=== PATIENT | male | born 1955 | race Caucasian/White ===

== ENCOUNTER 2018-06-20 08:45 | Observation (INO) | payer BC, OTHER ==
[2018-06-20] MEDS: Sodium Chloride 0.9% 500 ML IV ONE (09:00)
--- NOTE | 2018-06-20 09:20 | EDM.PDOC ---
ED HPI GENERAL MEDICAL PROBLEM - General Chief Complaint: Cardiovascular Problem Stated Complaint: elevated BP Time Seen by Provider: 06/20/18 08:50 Source of Information: Reports: Patient History Limitations: Reports: No Limitations - History of Present Illness INITIAL COMMENTS - FREE TEXT/NARRATIVE: Pt is a healthy 62 year male , who presents to emergency room with dizziness. Pt claims that he woke up today morning and felt lightheaded and dizzy. he started getting up and walking and he continued to feels dizzy, and felt sweaty , but no chest pain, shortness of breath or palpitations with it. No fever or chills.Pt claims he did feel anxious and concerned.He claims he does check his blood pressure several times a day and has been running around 130s/80-90smmhg. He came into emergency room, was still dizzy and anxious. Presently not dizzy. His initial Blood pressure was 149/89mmhg. Heart rate in 80s. Cardiac strip in NSR. No nausea or vomiting. Onset: Today Onset Date: 06/20/18 Onset Time: 06:00 Quality: Reports: Ache Severity: Mild Improves with: Reports: None Worsens with: Reports: None Associated Symptoms: Denies: Confusion, Chest Pain, Cough, Diaphoresis, Fever/ Chills, Headaches, Nausea/Vomiting, Rash, Seizure, Shortness of Breath, Syncope , Weakness - Related Data Allergies Allergy/AdvReac Type Severity Reaction Status Date / Time No Known Allergies Allergy Verified 06/20/18 08:57 Home Meds: Home Meds NK [No Known Home Meds] 06/20/18 [History] ED ROS GENERAL - Review of Systems Review Of Systems: See Below Constitutional: Denies: Fever, Chills HEENT: Denies: Rhinitis, Throat Pain, Throat Swelling Respiratory: Denies: Shortness of Breath, Pleuritic Chest Pain, Cough, Sputum Cardiovascular: Denies: Chest Pain, Lightheadedness GI/Abdominal: Denies: Abdominal Pain, Nausea, Vomiting Musculoskeletal: Denies: Joint Pain, Joint Swelling Skin: Denies: Bruising, Pruritis, Rash Neurological: Denies: Confusion, Dizziness, Headache, Numbness, Seizure, Syncope , Tingling, Weakness, Change in Speech, Gait Disturbance Psychiatric: Denies: Agitation, Anxiety, Confusion ED EXAM, GENERAL - Physical Exam Exam: See Below Exam Limited By: No Limitations General Appearance: Alert, WD/WN, No Apparent Distress, Anxious Eye Exam: Bilateral Eye: EOMI, PERRL Ears: Normal External Exam, Normal Canal, Hearing Grossly Normal, Normal TMs Ear Exam: Bilateral Ear: Auricle Normal, Canal Normal, TM normal Nose: Normal Inspection, Normal Mucosa, No Blood Throat/Mouth: Normal Inspection, Normal Lips, Normal Teeth, Normal Gums, Normal Oropharynx, Normal Voice, No Airway Compromise Head: Atraumatic, Normocephalic Neck: Normal Inspection, Supple, Non-Tender, Full Range of Motion Respiratory/Chest: No Respiratory Distress, Lungs Clear, Normal Breath Sounds, No Accessory Muscle Use, Chest Non-Tender Cardiovascular: Normal Peripheral Pulses, Regular Rate, Rhythm, No Edema, No Gallop, No JVD, No Murmur, No Rub GI/Abdominal: Normal Bowel Sounds, Soft, Non-Tender, No Organomegaly, No Distention, No Abnormal Bruit, No Mass Extremities: Normal Inspection, Normal Range of Motion, Non-Tender, Normal Capillary Refill, No Pedal Edema Neurological: Alert, Oriented, CN II-XII Intact, Normal Cognition, Normal Gait, Normal Reflexes, No Motor/Sensory Deficits Psychiatric: Normal Affect, Normal Mood, Anxious Course - Vital Signs Text/Narrative:: Pt's clinical exam is normal, other then light headedness. His BP is elevated at 148/98mmhg. Repeat CARLA was up to 169/98mmhg. His Labs are within normal limit. His Troponin is negative. EKG is in NSR. His CT head is normal. His BP is 169/89mmhg.He did receive clonidine 0.1mg orally. Also He has dizziness with change in position,but his BP down not drop. He might have viral Labyrinthitis.He did receive meclizine 25mg orally. He received NS 500mg bolus. Will admit patient for observation. Will repeat 8 hr troponin around 3 PM make sure it is not cardiac related, as he does have elevated blood pressure. Last Recorded V/S: Last Vital Signs Temp 97.8 F 06/20/18 09:00 Pulse 65 06/20/18 09:00 Resp 12 06/20/18 09:00 BP 157/86 H 06/20/18 09:00 Pulse Ox 96 06/20/18 09:00 - Orders/Labs/Meds Orders: Active Orders 24 hr Category Date Time Status EKG Documentation Completion [RC] ASDIRECTED Care 06/20/18 09:09 Active Head wo Cont [CT] Stat Exams 06/20/18 10:43 Ordered Labs: Laboratory Tests 06/20/18 06/20/18 Range/Units 09:14 09:14 WBC 6.8 (4.0-11.0) K/uL RBC 4.32 L (4.50-6.50) M/uL Hgb 12.2 L (13.0-18.0) g/dL Hct 36.3 L (40.0-54.0) % MCV 84 (76-96) fL MCH 28.2 (27.0-32.0) pg MCHC 33.6 (31.0-35.0) g/dL RDW 16.6 H (11.0-16.0) % Plt Count 180 (150-400) K/uL MPV 8.7 (6.0-10.0) fL Neut % (Auto) 51.6 (45.0-70.0) % Lymph % (Auto) 36.4 (20.0-40.0) % [place] % (Auto) 8.0 (3.0-10.0) % Eos % (Auto) 3.7 (1.0-5.0) % Baso % (Auto) 0.3 (0.0-0.5) % Neut # (Auto) 3.51 (2.00-7.50) K/uL Lymph # (Auto) 2.47 (1.50-4.00) K/uL [place] # (Auto) 0.54 (0.20-0.80) K/uL Eos # (Auto) 0.25 (0.04-0.40) K/uL Baso # (Auto) 0.02 (0.02-0.10) K/uL Sodium 141 (136-145) mmol/L Potassium 3.9 (3.5-5.1) mmol/L Chloride 106 (98-107) mmol/L Carbon Dioxide 25.5 (21.0-32.0) mmol/L Anion Gap 13.4 (5.0-15.0) mmol/L BUN 16 (8-26) mg/dL Creatinine 1.15 (0.70-1.30) mg/dL Est Cr Clr Drug Dosing TNP Estimated GFR (MDRD) > 60 (>60) MLS/MIN BUN/Creatinine Ratio 13.9 (6-25) Glucose 118 H (74-100) mg/dL Calcium 8.5 (8.5-10.1) mg/dL Total Bilirubin 0.5 (0.0-1.0) mg/dL AST 23 (15-37) U/L ALT 25 (12-78) U/L Alkaline Phosphatase 57 (46-116) U/L Troponin I 0.020 (0.000-0.060) ng/mL Total Protein 7.0 (6.4-8.2) g/dL Albumin 3.3 L (3.4-5.0) g/dL Globulin 3.7 (2.2-4.2) g/dL Albumin/Globulin Ratio 0.9 (0.8-2.0) Meds: Medications Discontinued Medications Generic Name Dose Route Start Last Admin Trade Name Freq PRN Reason Stop Dose Admin Clonidine HCl Confirm 06/20/18 10:10 06/20/18 10:51 Catapres Administered 06/20/18 10:11 Not Given Dose 0.1 mg .ROUTE .STK-MED ONE Clonidine HCl 0.1 mg 06/20/18 10:20 Catapres PO 06/20/18 10:21 ONETIME ONE Meclizine HCl Confirm 06/20/18 10:38 06/20/18 10:51 Antivert Administered 06/20/18 10:39 Not Given Dose 25 mg .ROUTE .STK-MED ONE Meclizine HCl 25 mg 06/20/18 10:44 06/20/18 10:56 Antivert PO 06/20/18 10:45 25 mg ONETIME ONE Administration Departure - Departure Time of Disposition: 11:00 Disposition: Refer to Observation Condition: Fair Clinical Impression: Dizziness Referrals: PCP,None [Primary Care Provider] - Forms: ED Department Discharge - Problem List & Annotations (1) Dizziness SNOMED Code(s): 185544169, [id number] Code(s): R42 - DIZZINESS AND GIDDINESS Status: Acute Current Visit: Yes - Problem List Review Problem List Initiated/Reviewed/Updated: Yes - My Orders Last 24 Hours: My Active Orders 06/20/18 09:09 EKG Documentation Completion [RC] ASDIRECTED 06/20/18 10:43 Head wo Cont [CT] Stat - Assessment/Plan Last 24 Hours: My Active Orders 06/20/18 09:09 EKG Documentation Completion [RC] ASDIRECTED 06/20/18 10:43 Head wo Cont [CT] Stat Assessment:: Dizziness Plan: Pt's clinical exam is normal, other then light headedness. His BP is elevated at 148/98mmhg. Repeat CARLA was up to 169/98mmhg. His Labs are within normal limit. His Troponin is negative. EKG is in NSR. His CT head is normal. His BP is 169/89mmhg.He did receive clonidine 0.1mg orally. Also He has dizziness with change in position,but his BP down not drop. He might have viral Labyrinthitis.He did receive meclizine 25mg orally. He received NS 500mg bolus. Will admit patient for observation. Will repeat 8 hr troponin around 3 PM make sure it is not cardiac related, as he does have elevated blood pressure.
[2018-06-20] MEDS: cloNIDine 0.1 MG Tab PO ONE (10:00)
[2018-06-20] MEDS: cloNIDine 0.1 MG Tab ONE (10:51)
[2018-06-20] MEDS: Meclizine 12.5 MG Tab PO ONE (10:56)
--- NOTE | 2018-06-20 15:51 | PCM.DCSUM1 ---
Discharge Summary - Hospital Course Free Text/Narrative:: Pt presented with sudden onset of dizziness since 8 AM today. He did have workup in the emergency room,which was negative for cardiac injury. Also his CT head was negative.He did have elevated blood pressure, he was treated with clonidine to get his pressure down. His initial troponin was negative. I did repeat second set of tropoin 8 hrs later which is negative. also pt received meclizine 25mg , and his dizziness has resolved. Pt's dizzy episode might be related to his elevated blood pressure or early labrynthitis. Pt is feeling better now. His dizziness has resolved. Plan is to start lisinopril 5mg daily for his hypertension and meclizine 25mg TID for dizzy spells. Followup in clinic next week for recheck. Brief History: Presented to emergency room with dizziness since today morning. Kindly see H&P Diagnosis: Stroke: No - Discharge Data Discharge Date: 06/20/18 Discharge Disposition: Home, Self-Care 01 Condition: Good - Discharge Diagnosis/Problem(s) (1) Dizziness SNOMED Code(s): 154008860, [id number] ICD Code: R42 - DIZZINESS AND GIDDINESS Status: Acute Current Visit: Yes - Patient Instructions Diet: Regular Diet as Tolerated Fluid Restriction: 1500 mL Activity: As Tolerated Driving: May Drive Today Showering/Bathing: May Shower - Discharge Plan *PRESCRIPTION DRUG MONITORING PROGRAM REVIEWED*: Not Applicable *COPY OF PRESCRIPTION DRUG MONITORING REPORT IN PATIENT JOVANY: Not Applicable Home Medications: Home Meds NK [No Known Home Meds] 06/20/18 [History] Forms: ED Department Discharge Referrals: PCP,None [Primary Care Provider] - - Discharge Summary/Plan Comment DC Time >30 min.: Yes Discharge Summary/Plan Comment: Pt's dizzy episode might be related to his elevated blood pressure or early labrynthitis. Pt is feeling better now. His dizziness has resolved. Plan is to start lisinopril 5mg daily for his hypertension and meclizine 25mg TID for dizzy spells. Followup in clinic next week for recheck. - Review of Systems General: Denies: Fever, Weakness, Malaise HEENT: Denies: Sore Throat, Rhinitis, Visual Changes Pulmonary: Denies: Hemoptysis, Wheezing Cardiovascular: Denies: Chest Pain, Lightheadedness Gastrointestinal: Denies: Abdominal Pain, Nausea, Vomiting Genitourinary: Denies: Dysuria, Frequency Musculoskeletal: Denies: Joint Pain, Joint Swelling Skin: Denies: Bruising, Pruritis, Rash Neurological: Denies: Confusion, Dizziness, Headache - Patient Data Vitals - Most Recent: Last Vital Signs Temp 97.7 F 06/20/18 13:25 Pulse 59 L 06/20/18 13:25 Resp 12 06/20/18 09:00 BP 116/67 06/20/18 13:25 Pulse Ox 98 06/20/18 13:25 Weight - Most Recent: 88.451 kg Lab Results - Last 24 hrs: Laboratory Results - last 24 hr 06/20/18 06/20/18 06/20/18 Range/Units 09:14 09:14 15:01 WBC 6.8 (4.0-11.0) K/uL RBC 4.32 L (4.50-6.50) M/uL Hgb 12.2 L (13.0-18.0) g/dL Hct 36.3 L (40.0-54.0) % MCV 84 (76-96) fL MCH 28.2 (27.0-32.0) pg MCHC 33.6 (31.0-35.0) g/dL RDW 16.6 H (11.0-16.0) % Plt Count 180 (150-400) K/uL MPV 8.7 (6.0-10.0) fL Neut % (Auto) 51.6 (45.0-70.0) % Lymph % (Auto) 36.4 (20.0-40.0) % [place] % (Auto) 8.0 (3.0-10.0) % Eos % (Auto) 3.7 (1.0-5.0) % Baso % (Auto) 0.3 (0.0-0.5) % Neut # (Auto) 3.51 (2.00-7.50) K/uL Lymph # (Auto) 2.47 (1.50-4.00) K/uL [place] # (Auto) 0.54 (0.20-0.80) K/uL Eos # (Auto) 0.25 (0.04-0.40) K/uL Baso # (Auto) 0.02 (0.02-0.10) K/uL Sodium 141 (136-145) mmol/L Potassium 3.9 (3.5-5.1) mmol/L Chloride 106 (98-107) mmol/L Carbon Dioxide 25.5 (21.0-32.0) mmol/L Anion Gap 13.4 (5.0-15.0) mmol/L BUN 16 (8-26) mg/dL Creatinine 1.15 (0.70-1.30) mg/dL Est Cr Clr Drug Dosing TNP Estimated GFR (MDRD) > 60 (>60) MLS/MIN BUN/Creatinine Ratio 13.9 (6-25) Glucose 118 H (74-100) mg/dL Calcium 8.5 (8.5-10.1) mg/dL Total Bilirubin 0.5 (0.0-1.0) mg/dL AST 23 (15-37) U/L ALT 25 (12-78) U/L Alkaline Phosphatase 57 (46-116) U/L Troponin I 0.020 < 0.017 (0.000-0.060) ng/mL Total Protein 7.0 (6.4-8.2) g/dL Albumin 3.3 L (3.4-5.0) g/dL Globulin 3.7 (2.2-4.2) g/dL Albumin/Globulin Ratio 0.9 (0.8-2.0) Med Orders - Current: Current Medications Discontinued Medications Clonidine HCl (Catapres) Confirm Administered Dose 0.1 mg .ROUTE .STK-MED ONE Stop: 06/20/18 10:11 Last Admin: 06/20/18 10:51 Dose: Not Given Clonidine HCl (Catapres) 0.1 mg PO ONETIME ONE Stop: 06/20/18 10:21 Last Admin: 06/20/18 10:00 Dose: 0.1 mg Meclizine HCl (Antivert) Confirm Administered Dose 25 mg .ROUTE .STK-MED ONE Stop: 06/20/18 10:39 Last Admin: 06/20/18 10:51 Dose: Not Given Meclizine HCl (Antivert) 25 mg PO ONETIME ONE Stop: 06/20/18 10:45 Last Admin: 06/20/18 10:56 Dose: 25 mg - Exam General: Reports: Alert, Oriented, Cooperative HEENT: Reports: Pupils Equal, Pupils Reactive, EOMI, Mucous Membr. Moist/[place] Neck: Reports: Supple Lungs: Reports: Clear to Auscultation, Normal Respiratory Effort Cardiovascular: Reports: Regular Rate, Regular Rhythm GI/Abdominal Exam: Normal Bowel Sounds, Soft, Non-Tender, No Organomegaly, No Distention, No Abnormal Bruit, No Mass, Pelvis Stable Back Exam: Reports: Normal Inspection, Full Range of Motion Extremities: Normal Inspection, Normal Range of Motion, Non-Tender, No Pedal Edema, Normal Capillary Refill Skin: Reports: Warm, Dry, Intact Neurological: Reports: No New Focal Deficit Psy/Mental Status: Reports: Alert, Normal Affect, Normal Mood
--- NOTE | 2018-06-20 18:17 | CT ---
UNENHANCED BRAIN CT, 06/20/18 Multislice acquisition through the brain without IV contrast was performed. No priors. No masses or mass effect. No intracranial hemorrhage, No evidence of acute or subacute infarct. There is fluid in the ethmoid sinuses consistent with sinusitis. There is also mucosal thickening in the sphenoid sinuses consistent with chronic sinusitis. IMPRESSION: No acute intracranial abnormalities. [id number] [facility]
== END 2018-06-20 16:10 | disposition home or self-care (01) ==
LOC: LB.ED 08:45 → LB.MS 10:20
PROVIDERS: ADMIT Family Medicine; ATTEND Family Medicine
DX: R42 Dizziness and giddiness (principal); I10 Essential (primary) hypertension
CPT/HCPCS: 36415; 70450; 80053; 84484; 85025; 93005; 96360; 99284-25; A9270-GY; G0378; J7040